=== PATIENT | female | born 1985 | race Caucasian/White ===

== ENCOUNTER 2020-08-04 10:29 | Observation (INO) | payer MEDICARE, MEDICAID ==
[2020-08-04 11:01] VITALS: BMI 27.4
[2020-08-04] MEDS ORDERED: Acetaminophen/Codeine 30-300mg Tablet PO PRN ×5 (11:06→22:05)
[2020-08-04] MEDS ORDERED: Ondansetron PF 4 MG/2 ML Vial IVP PRN ×2 (11:06→22:05)
[2020-08-04] MEDS ORDERED: hydrALAZINE 20 MG/ML VIAL SLOW IVP PRN ×2 (11:06→22:04)
[2020-08-04] MEDS ORDERED: Promethazine HCl 25 MG/ML VIAL IM PRN ×2 (11:06→22:05)
[2020-08-04] MEDS ORDERED: cefTRIAXone Sodium 1 MG in Syringe 0 ML IVPB SCH (11:15)
[2020-08-04 11:18] LABS: Bilirubin Neg (Negative); Blood, Urine Negative (Negative); Clarity Clear (Clear); Glucose, Urine (Dipstick) Normal (Negative); Ketone, Urine Negative (Negative); Leukocyte 25 (Negative); Nitrite Negative (Negative); Protein, Urine (Dipstick) Negative (Neg-Trace); Urobilinogen Normal mg/dL (Less than 2)
[2020-08-04 11:33] LABS: Bacteria/HPF 1+ HPF (None Seen); RBC/HPF 0-3 HPF (0-3)
[2020-08-04] MEDS ORDERED: cefTRIAXone\\ROCEPHIN 1 GM in Sodium Chloride 0.9% 100 ML IVPB SCH (12:30)
[2020-08-04] MEDS ORDERED: cefTRIAXone\\ROCEPHIN 2 GM in Sodium Chloride 0.9% 100 ML IVPB SCH (22:15)
[2020-08-05] MEDS ORDERED: Morphine 4 MG/ML VIAL SLOW IVP SCH (01:30)
[2020-08-05] MEDS ORDERED: cefTRIAXone\\ROCEPHIN 2 GM in Sodium Chloride 0.9% 100 ML IVPB SCH ×2 (02:30→12:30)
[2020-08-05] MEDS: cefTRIAXone\\ROCEPHIN 2 GM in Sodium Chloride 0.9% 100 ML IVPB SCH (02:44)
[2020-08-05] MEDS: traMADol HCl 50 MG TAB PO PRN ×5 (02:45→20:04)
[2020-08-05] MEDS: Levothyroxine Sodium 50 MCG TAB PO SCH (06:12)
[2020-08-05] MEDS ORDERED: DOXYLAMINE SUCCINATE PO SCH (09:00)
[2020-08-05] MEDS ORDERED: Mirtazapine 15 MG TAB PO SCH ×2 (09:00→21:00)
[2020-08-05] MEDS ORDERED: VIT B6 PO SCH (09:00)
[2020-08-05] MEDS: Prenatal Vitamin 1 TAB PO SCH (09:10)
[2020-08-05] MEDS: clonazePAM 0.5 MG TAB PO SCH (09:11)
[2020-08-05] MEDS ORDERED: pyridOXINE 50 MG (B6) TAB PO SCH (10:00)
[2020-08-05] MEDS ORDERED: Doxylamine 25 MG TAB PO SCH (10:00)
[2020-08-05] MEDS: Acetaminophen 500 MG TAB PO PRN ×2 (11:32→20:03)
[2020-08-05] MEDS: Doxylamine 25 MG TAB PO SCH (21:21)
[2020-08-05] MEDS: pyridOXINE 50 MG (B6) TAB PO SCH (21:23)
[2020-08-06] MEDS: traMADol HCl 50 MG TAB PO PRN ×2 (01:12→05:12)
[2020-08-06] MEDS: cefTRIAXone\\ROCEPHIN 2 GM in Sodium Chloride 0.9% 100 ML IVPB SCH (02:33)
[2020-08-06] MEDS: Acetaminophen 500 MG TAB PO PRN (05:11)
[2020-08-06] MEDS: Levothyroxine Sodium 50 MCG TAB PO SCH (05:11)
[2020-08-06 07:39] VITALS: BP 100/60; TEMP 98
[2020-08-06] MEDS: Prenatal Vitamin 1 TAB PO SCH (09:17)
[2020-08-06] MEDS: pyridOXINE 50 MG (B6) TAB PO SCH (09:18)
[2020-08-06] MEDS: Doxylamine 25 MG TAB PO SCH (09:18)
[2020-08-06] MEDS: clonazePAM 0.5 MG TAB PO SCH (09:18)
== END 2020-08-06 09:30 | disposition home or self-care (01) ==
LOC: CSHLD/OP 10:29 → INTOOBSV 10:40 → CSHLD 10:40 → UNDODISIN 17:56 → TMPLOALOC 17:56 → CSHANTE 19:22
PROVIDERS: ADMIT Obstetrics & Gynecology; ATTEND Obstetrics & Gynecology
DX: O23.02 Infections of kidney in pregnancy, second trimester (principal); O23.12 Infections of bladder in pregnancy, second trimester; O99.282 Endocrine, nutritional and metabolic diseases complicating pregnancy, second trimester; E03.9 Hypothyroidism, unspecified; O99.891 Other specified diseases and conditions complicating pregnancy; M06.9 Rheumatoid arthritis, unspecified; N13.30 Unspecified hydronephrosis; M54.5 Low back pain; Z3A.27 27 weeks gestation of pregnancy; Z79.2 Long term (current) use of antibiotics; Z79.899 Other long term (current) drug therapy; Z88.3 Allergy status to other anti-infective agents; Z91.040 Latex allergy status
CPT/HCPCS: 76770; 81001; 96374; 96375; 96376; 99285; G0378; J0696; J2270; J2405; J3490